=== PATIENT | male | born 1950 | race African-American/Black ===

== ENCOUNTER 2020-01-20 13:27 | Emergency (ER) | payer MEDICARE ==
[2020-01-20] MEDS ORDERED: Lidocaine 1% w/Epinephrine 1:100K 30 ML VIAL ONE (13:43)
[2020-01-20] MEDS ORDERED: Adacel (T-DAP) 0.5 ML SYRINGE ONE (13:43)
== END 2020-01-20 14:15 | disposition home or self-care (01) ==
LOC: NAV ERS 13:27
DX: S61.412A Laceration without foreign body of left hand, initial encounter (principal); Z86.73 Personal history of transient ischemic attack (TIA), and cerebral infarction without residual deficits; Z23 Encounter for immunization; W25.XXXA Contact with sharp glass, initial encounter; Y92.009 Unspecified place in unspecified non-institutional (private) residence as the place of occurrence of the external cause
CPT/HCPCS: 12002; 90471; 90715; J2001

== ENCOUNTER 2020-02-03 09:01 | Emergency (ER) | payer MEDICARE | END 2020-02-03 09:46 | disposition home or self-care (01) | LOC: NAV ERS 09:01 | DX: T81.33XA Disruption of traumatic injury wound repair, initial encounter (principal); Z86.73 Personal history of transient ischemic attack (TIA), and cerebral infarction without residual deficits | CPT/HCPCS: 99283 ==

== ENCOUNTER 2020-06-09 20:51 | Emergency (ER) | payer MEDICARE, OTHER ==
[2020-06-11 12:00] LABS: SARS-CoV-2 MS2 Positive; SARS-CoV-2 N Gene Positive; SARS-CoV-2 S Gene Positive; SARS-CoV-2 by NAA DETECTED (NotDetected); SARS-CoV-2 orf1ab Positive
== END 2020-06-09 21:20 | disposition home or self-care (01) ==
LOC: NAV ERS 20:51
DX: U07.1 COVID-19 (principal); Z86.73 Personal history of transient ischemic attack (TIA), and cerebral infarction without residual deficits
CPT/HCPCS: 87635; 99283; U0003

== ENCOUNTER 2023-11-16 01:44 | Emergency (ER) | payer MEDICARE, OTHER ==
[2023-11-16 02:15] LABS: #Basophils 0.1 thou/uL (0.0-0.2); #Eosinphils 0.3 thou/uL (0.0-0.7); #Monocytes 0.6 thou/uL (0.11-0.59); #Neutrophils 2.4 thou/uL (1.40-6.50); %Basophils 1.4 % (0.0-1.0); %Eosinophils 5.2 % (0.0-10.0); %Lymphocytes 36.9 % (21.0-51.0); %Monocytes 10.6 % (0.0-10.0); %Neutrophils 45.9 % (42.0-75.0); Hematocrit 42.1 % (42.0-52.0); Hemoglobin 13.7 g/dL (14.0-18.0); Mean Corpuscular HGB CONC 32.5 g/dL (32.0-36.0); Mean Corpuscular Hemoglobin 28.8 pg (27.0-31.0); Mean Corpuscular Volume 88.5 fl (78.0-98.0); Mean Platelet Volume 6.4 fL (7.4-10.4); Platelet Count 262 10x3/uL (130-400); RBC Distribution Width 11.8 % (11.5-14.5); Red Blood Cell (RBC) Count 4.76 mill/uL (4.70-6.10); White Blood Cell (WBC) Count 5.3 10x3/uL (4.8-10.8)
[2023-11-16 02:28] LABS: ALT (SGPT) 16 U/L (8-55); AST (SGOT) 19 U/L (5-34); Albumin 4.2 g/dL (3.4-4.8); Alkaline Phosphatase 58 U/L (40-110); Anion Gap 14 mmol/L (10-20); BUN (Urea Nitrogen) 10 mg/dL (8.4-25.7); Bilirubin, Total 0.4 mg/dL (0.2-1.2); Calc. Creatinine Clearance 0 mL/min (70-130); Calcium 9.1 mg/dL (7.8-10.44); Carbon Dioxide 27 mmol/L (23-31); Chloride 103 mmol/L (98-107); Estimated GFR 53; Globulin 3.2 g/dL (2.4-3.5); Glucose 135 mg/dL (83-110); Potassium 3.2 mmol/L (3.5-5.1); Protein, Total 7.4 g/dL (5.8-8.1); Sodium 141 mmol/L (136-145)
[2023-11-16 02:31] LABS: Troponin I Less than 0.010 ng/mL (< 0.028)
[2023-11-16 02:38] LABS: PTT 23.7 sec (22.9-36.1)
[2023-11-16] MEDS ORDERED: Aspirin 325 MG TAB ONE (03:32)
[2023-11-16 04:09] LABS: Bilirubin Negative (Negative); Blood, Urine Negative (Negative); Clarity Clear (Clear); Glucose, Urine (Dipstick) Negative (Negative); Ketone, Urine Negative (Negative); Leukocyte Negative (Negative); Nitrite Negative (Negative); Protein, Urine (Dipstick) Negative (Neg-Trace); RBC/HPF 0-3 HPF (0-3)
[2023-11-16 04:16] LABS: Amphetamine Not Detected (NotDetected); Barbiturates Screen Not Detected (NotDetected); Benzodiazepine Screen Not Detected (NotDetected); Cocaine Metabolite Screen Not Detected (NotDetected); Methadone Not Detected (NotDetected); Methamphetamine Not Detected (NotDetected); Opiate Screen Not Detected (NotDetected); Oxycodone Screen Not Detected (NotDetected); Phencyclidine (PCP) Not Detected (NotDetected); THC/Cannabinoid Screen Not Detected (NotDetected); Tricyclic Screen Not Detected (NotDetected)
[2023-11-16 06:29] LABS: Troponin I 0.011 ng/mL (< 0.028)
[2023-11-16] MEDS ORDERED: Iopamidol 370 76% 100 ML VIAL ONE (09:00)
[2023-11-16] MEDS ORDERED: Sodium Chloride 0.9% 1,000 ML ONE (09:11)
== END 2023-11-16 16:30 | disposition short-term general hospital (02) ==
LOC: NAV ERS 01:44
DX: R55 Syncope and collapse (principal); R47.01 Aphasia; E78.5 Hyperlipidemia, unspecified; I10 Essential (primary) hypertension
CPT/HCPCS: 70450; 70496; 71045; 80053; 80306; 81001; 82550; 84484; 85025; 85610; 85730; 93005; 96360; 96361; J7050; Q9967

== ENCOUNTER 2024-07-19 09:35 | Emergency (ER) | payer OTHER, MEDICARE | END 2024-07-19 11:10 | disposition home or self-care (01) | LOC: NAV ERS 09:35 | DX: S39.012A Strain of muscle, fascia and tendon of lower back, initial encounter (principal); S16.1XXA Strain of muscle, fascia and tendon at neck level, initial encounter; I10 Essential (primary) hypertension; E78.00 Pure hypercholesterolemia, unspecified; Z79.899 Other long term (current) drug therapy; V89.2XXA Person injured in unspecified motor-vehicle accident, traffic, initial encounter | CPT/HCPCS: 72100; 99283 ==